=== PATIENT | female | born 1985 | race Caucasian/White ===

== ENCOUNTER 2021-10-22 09:11 | Day surgery (SDC) | payer OTHER ==
[2021-10-21 19:21] VITALS: BMI 25.7
[2021-10-22 14:45] VITALS: TEMP 97
[2021-10-22 14:48] VITALS: BP 111/65; PULSE 102; RESP 17
== END 2021-10-22 12:50 | disposition home or self-care (01) ==
LOC: FASU-ENDO 09:11
PROVIDERS: ATTEND Internal Medicine
PROC: 0DB68ZX Excision of Stomach, Via Natural or Artificial Opening Endoscopic, Diagnostic (ICD-10-PCS; 2021-10-22)
PROC: 0DB48ZX Excision of Esophagogastric Junction, Via Natural or Artificial Opening Endoscopic, Diagnostic (ICD-10-PCS; principal; 2021-10-22 12:11)
DX: K29.50 Unspecified chronic gastritis without bleeding (principal); K21.00 Gastro-esophageal reflux disease with esophagitis, without bleeding; K31.9 Disease of stomach and duodenum, unspecified; R10.11 Right upper quadrant pain
CPT/HCPCS: 84703; 87426; 88305-TC; 88342-TC; C9803-CS; U0003; U0005